=== PATIENT | female | born 1945 | race Caucasian/White ===

== ENCOUNTER 2022-09-24 11:56 | Emergency (ER) | payer MEDICARE ==
[2022-09-24 12:33] VITALS: BP 155/69; PULSE 78; RESP 18; TEMP 97.8; BMI 25.6
[2022-09-24] MEDS ORDERED: KETOROLAC TROMETHAMINE 30 MG/1 ML VIAL IM ONE (15:45)
[2022-09-24] MEDS ORDERED: ACETAMINOPHEN 325 MG TABLET (FP) PO ONE (15:46)
[2022-09-24] MEDS ORDERED: ACETAMINOPHEN 325 MG TABLET (FP) ONE (16:07)
[2022-09-24] MEDS ORDERED: KETOROLAC TROMETHAMINE 30 MG/1 ML VIAL ONE (16:08)
== END 2022-09-24 17:42 | disposition home or self-care (01) ==
LOC: JERFT 11:56
PROC: 3E0233Z Introduction of Anti-inflammatory into Muscle, Percutaneous Approach (ICD-10-PCS; principal; 2022-09-24)
DX: S49.91XA Unspecified injury of right shoulder and upper arm, initial encounter (principal); W01.0XXA Fall on same level from slipping, tripping and stumbling without subsequent striking against object, initial encounter
CPT/HCPCS: 73030-TC-RT-FY; 73060-TC-RT-FY; 73562-TC-LT-FY; 96372; 99285-25